=== PATIENT | female | born 1980 | race African-American/Black ===

== ENCOUNTER 2021-11-02 19:01 | Inpatient (IN) | payer BC ==
[~2021-11-02 19:01] MED LIST: Bupivacaine/Epinephrine 0.25% 30 ML VIAL ONE; ePHEDrine Sulfate 50 MG/10 ML VIAL ONE
[2021-11-02] MEDS ORDERED: Lidocaine 1% (PF) 30 ML VIAL SC PRN (21:25)
[2021-11-02] MEDS ORDERED: Acetaminophen 500 MG TAB PO PRN (21:25)
[2021-11-02] MEDS ORDERED: HYDROcodone/Acetaminophen 5/325 mg Tablet PO PRN (21:25)
[2021-11-02] MEDS ORDERED: Carboprost 250 MCG/ML AMP IM PRN (21:25)
[2021-11-02] MEDS ORDERED: Misoprostol 200 MCG TAB PR PRN (21:25)
[2021-11-02] MEDS ORDERED: Ibuprofen 800 MG TAB PO PRN (21:25)
[2021-11-02] MEDS ORDERED: Promethazine HCl 25 MG/ML VIAL IM PRN (21:25)
[2021-11-02] MEDS ORDERED: Diphenoxylate HCl/Atropine Tablet PO PRN (21:25)
[2021-11-02] MEDS ORDERED: Butorphanol Tartrate 1 MG/ML VIAL SLOW IVP PRN (21:25)
[2021-11-02] MEDS ORDERED: Methylergonovine 0.2 MG/ML VIAL IM PRN (21:25)
[2021-11-02] MEDS ORDERED: Ondansetron PF 4 MG/2 ML Vial IVP PRN (21:25)
[2021-11-02] MEDS ORDERED: hydrALAZINE 20 MG/ML VIAL SLOW IVP PRN (21:25)
[2021-11-02 21:29] VITALS: BMI 41.3
[2021-11-02] MEDS ORDERED: NS w/ Oxytocin 30 units 500 ML IV SCH ×2 (21:30)
[2021-11-02] MEDS: Misoprostol 100 MCG TAB VAG SCH (21:43)
[2021-11-02 22:29] LABS: Mean Corpuscular HGB CONC 34.1 g/dL (32.0-36.0); Mean Corpuscular Hemoglobin 24.8 pg (27.0-33.0); Mean Corpuscular Volume 72.7 fl (81.6-98.3); Platelet Count 326 10x3/uL (150-450); RBC Distribution Width 16.2 % (11.5-14.5); Red Blood Cell (RBC) Count 4.03 10x6/uL (3.90-5.03); White Blood Cell (WBC) Count 12.1 10x3/uL (3.5-10.5)
[2021-11-02 22:47] LABS: Syphilis Antibody Nonreactive (Nonreactive)
[2021-11-02 22:59] LABS: HBSAg Index 0.32 S/CO (0-0.99); Hep B Surf Ag Non-Reactive S/CO (NonReactive)
[2021-11-03] MEDS: Misoprostol 100 MCG TAB VAG SCH ×4 (01:08→12:10)
[2021-11-03] MEDS: Lactated Ringer's 1,000 ML IV SCH ×3 (07:54→15:13)
[2021-11-03] MEDS ORDERED: Fentanyl 2 mcg/Bup 0.1% Cadd 100 ML ONE ×2 (14:56→23:02)
[2021-11-03] MEDS ORDERED: Promethazine HCl 25 MG/ML VIAL IM PRN (16:02)
[2021-11-03] MEDS ORDERED: diphenhydrAMINE 50 MG/ML VIAL IVP PRN (16:02)
[2021-11-03] MEDS ORDERED: Moisturizing Cream (Eucerin) 113 GM JAR TOP PRN (16:02)
[2021-11-03] MEDS ORDERED: ePHEDrine Sulfate 50 MG/10 ML VIAL SLOW IVP PRN (16:02)
[2021-11-03] MEDS ORDERED: Lactated Ringer's 500 ML IV PRN (16:02)
[2021-11-03] MEDS ORDERED: Ondansetron PF 4 MG/2 ML Vial IVP PRN (16:02)
[2021-11-03] MEDS ORDERED: Naloxone HCl 0.4 mg/ml Vial IVP PRN ×2 (16:02)
[2021-11-03] MEDS ORDERED: Acetaminophen 325 MG TAB PO PRN (16:02)
[2021-11-03] MEDS ORDERED: Communication Order-Pharmacy FS SCH (16:15)
[2021-11-03] MEDS: Fentanyl 2 mcg/Bupivacaine 0.1% Cassette 100 ML EPIDURAL SCH (23:04)
[2021-11-04] MEDS: Fentanyl 2 mcg/Bupivacaine 0.1% Cassette 100 ML EPIDURAL SCH (06:17)
[2021-11-04] MEDS ORDERED: Fentanyl 2 mcg/Bup 0.1% Cadd 100 ML ONE (06:19)
[2021-11-04] MEDS ORDERED: CEFAZOLIN 2 GM VIAL ONE (14:16)
[2021-11-04] MEDS ORDERED: Methylergonovine 0.2 MG/ML VIAL ONE (14:28)
[2021-11-04] MEDS ORDERED: ePHEDrine Sulfate 50 MG/10 ML VIAL ONE (14:29)
[2021-11-04] MEDS ORDERED: Ondansetron PF 4 MG/2 ML Vial ONE (14:30)
[2021-11-04] MEDS ORDERED: Dexamethasone 4 mg/ml Vial ONE (14:30)
[2021-11-04] MEDS ORDERED: PHENYLEPHRINE-NS 100 MCG/ML 10 ML SYRINGE ONE (14:30)
[2021-11-04] MEDS ORDERED: Oxytocin 10 UNITS/ML VIAL ONE ×2 (14:30→14:39)
[2021-11-04] MEDS ORDERED: Carboprost 250 MCG/ML AMP ONE (14:38)
[2021-11-04] MEDS ORDERED: Tranexamic Acid 1,000 MG/10 ML VIAL ONE (14:38)
[2021-11-04] MEDS ORDERED: Misoprostol 200 MCG TAB ONE (14:38)
[2021-11-04] MEDS ORDERED: Morphine PF 10 MG/10 ML VIAL ONE (14:42)
[2021-11-04] MEDS ORDERED: Ketorolac Tromethamine 30 MG/ML VIAL ONE (14:45)
[2021-11-04 14:49] LABS: pH (Cord, venous) 7.305 (7.250-7.350)
[2021-11-04] MEDS ORDERED: L&D-Morphine 4 MG/ML VIAL SLOW IVP PRN (15:19)
[2021-11-04] MEDS ORDERED: Promethazine HCl 25 MG/ML VIAL IM PRN (15:19)
[2021-11-04] MEDS ORDERED: diphenhydrAMINE 50 MG/ML VIAL IVP PRN (15:19)
[2021-11-04] MEDS ORDERED: Ondansetron HCl/PF 4 MG/2 ML Vial IVP PRN (15:19)
[2021-11-04] MEDS ORDERED: Fentanyl 100 MCG/2 ML VIAL SLOW IVP PRN (15:19)
[2021-11-04] MEDS ORDERED: Naloxone HCl 0.4 mg/ml Vial IV PRN (15:19)
[2021-11-04] MEDS ORDERED: Ondansetron PF 4 MG/2 ML Vial IVP PRN ×2 (15:19→18:02)
[2021-11-04] MEDS ORDERED: Promethazine HCl 25 MG SUPP PR PRN (15:19)
[2021-11-04] MEDS ORDERED: Meperidine HCl/PF 25 MG/ML VIAL SLOW IVP PRN (15:19)
[2021-11-04] MEDS ORDERED: Naloxone HCl 0.4 mg/ml Vial IVP PRN ×2 (15:19)
[2021-11-04] MEDS ORDERED: Moisturizing Cream (Eucerin) 113 GM JAR TOP PRN (15:19)
[2021-11-04] MEDS ORDERED: Communication Order-Pharmacy FS SCH (15:30)
[2021-11-04] MEDS ORDERED: Ketorolac Tromethamine 30 MG/ML VIAL IVP SCH (15:30)
[2021-11-04] MEDS ORDERED: Azithromycin 500 MG VIAL ONE (15:41)
[2021-11-04] MEDS ORDERED: Simethicone Chewable 80 MG TAB PO PRN (18:02)
[2021-11-04] MEDS ORDERED: Acetaminophen 325 MG TAB PO PRN (18:02)
[2021-11-04] MEDS ORDERED: Boostrix 0.5 ML (Tdap) VIAL IM ONE (18:02)
[2021-11-04] MEDS ORDERED: Bisacodyl 10 MG SUPP PR PRN (18:02)
[2021-11-04] MEDS ORDERED: Lanolin Ointment 7 GM TUBE TOP PRN (18:02)
[2021-11-04] MEDS ORDERED: hydrALAZINE 20 MG/ML VIAL SLOW IVP PRN (18:02)
[2021-11-04] MEDS ORDERED: diphenhydrAMINE 25 MG CAP PO PRN (18:02)
[2021-11-04] MEDS: Lactated Ringer's 1,000 ML IV SCH (18:17)
[2021-11-04] MEDS: Misoprostol 100 MCG TAB VAG SCH ×2 (18:18→18:19)
[2021-11-04] MEDS: Ketorolac Tromethamine 30 MG/ML VIAL IVP PRN (21:08)
[2021-11-05] MEDS: Docusate 100 MG CAP PO SCH ×3 (00:15→21:21)
[2021-11-05] MEDS: Ferrous Sulfate 325 MG TAB PO SCH ×3 (00:16→21:21)
[2021-11-05] MEDS: Ketorolac Tromethamine 30 MG/ML VIAL IVP PRN (03:25)
[2021-11-05 05:47] LABS: Hemoglobin 8.7 g/dL (12.0-15.5); Mean Corpuscular HGB CONC 35.4 g/dL (32.0-36.0); Mean Corpuscular Hemoglobin 25.4 pg (27.0-33.0); Mean Corpuscular Volume 71.7 fl (81.6-98.3); Mean Platelet Volume 10.5 fl (7.4-10.4); Platelet Count 243 10x3/uL (150-450); RBC Distribution Width 16.1 % (11.5-14.5); Red Blood Cell (RBC) Count 3.43 10x6/uL (3.90-5.03); White Blood Cell (WBC) Count 19.2 10x3/uL (3.5-10.5)
[2021-11-05] MEDS: Prenatal Vitamin 1 TAB PO SCH (09:09)
[2021-11-05] MEDS: HYDROcodone/Acetaminophen 5/325 mg Tablet PO PRN ×3 (09:12→19:47)
[2021-11-05] MEDS: Ibuprofen 800 MG TAB PO SCH ×2 (14:29→21:21)
[2021-11-05] MEDS ORDERED: Zolpidem Tartrate 5 MG TAB PO PRN (21:00)
[2021-11-06] MEDS: HYDROcodone/Acetaminophen 5/325 mg Tablet PO PRN ×3 (03:00→14:33)
[2021-11-06] MEDS: Ibuprofen 800 MG TAB PO SCH ×2 (05:15→14:33)
[2021-11-06 07:50] VITALS: BP 102/58; TEMP 98.2
[2021-11-06] MEDS: Ferrous Sulfate 325 MG TAB PO SCH (09:47)
[2021-11-06] MEDS: Prenatal Vitamin 1 TAB PO SCH (09:47)
[2021-11-06] MEDS: Docusate 100 MG CAP PO SCH (09:48)
== END 2021-11-06 19:05 | disposition home or self-care (01) | DRG 787 ==
LOC: CSHLD 19:01 → CSHPP 11-04 17:44
PROVIDERS: ADMIT Student in an Organized Health Care Education/Training Program; ATTEND Student in an Organized Health Care Education/Training Program
PROC: 3E0P7VZ Introduction of Hormone into Female Reproductive, Via Natural or Artificial Opening (ICD-10-PCS; 2021-11-03)
PROC: 0U7C7ZZ Dilation of Cervix, Via Natural or Artificial Opening (ICD-10-PCS; 2021-11-03)
PROC: 10D00Z1 Extraction of Products of Conception, Low, Open Approach (ICD-10-PCS; principal; 2021-11-04)
PROC: 10907ZC Drainage of Amniotic Fluid, Therapeutic from Products of Conception, Via Natural or Artificial Opening (ICD-10-PCS; 2021-11-04)
PROC: 10H07YZ Insertion of Other Device into Products of Conception, Via Natural or Artificial Opening (ICD-10-PCS; 2021-11-04)
DX: O24.425 Gestational diabetes mellitus in childbirth, controlled by oral hypoglycemic drugs (principal); D62 Acute posthemorrhagic anemia; Z3A.38 38 weeks gestation of pregnancy; Z37.0 Single live birth; O76 Abnormality in fetal heart rate and rhythm complicating labor and delivery; O62.2 Other uterine inertia; F41.9 Anxiety disorder, unspecified; O99.344 Other mental disorders complicating childbirth; E66.9 Obesity, unspecified; O99.214 Obesity complicating childbirth; Z79.84 Long term (current) use of oral hypoglycemic drugs; Z79.82 Long term (current) use of aspirin; O77.0 Labor and delivery complicated by meconium in amniotic fluid; O69.81X0 Labor and delivery complicated by cord around neck, without compression, not applicable or unspecified; O32.8XX0 Maternal care for other malpresentation of fetus, not applicable or unspecified; O90.81 Anemia of the puerperium
CPT/HCPCS: 36416; 51702; 82805; 85027; 86780; 86850; 86900; 86901; 87340; 87811; J0456; J0595; J1100; J1885; J2210; J2274; J2405; J2590; J7120

== ENCOUNTER 2023-01-15 06:20 | Day surgery (SDC) | payer OTHER ==
[2023-01-13 16:16] VITALS: BMI 35.9
[2023-01-15] MEDS ORDERED: PROPOFOL 40 ML ONE (08:06)
[2023-01-15] MEDS ORDERED: Lidocaine 1% PF 5 ML VIAL ONE (08:07)
[2023-01-15] MEDS ORDERED: PROPOFOL 20 ML ONE (08:36)
== END 2023-01-15 09:20 | disposition home or self-care (01) ==
LOC: CSHSDC 06:20
PROVIDERS: ATTEND Internal Medicine Gastroenterology
PROC: 0DB58ZX Excision of Esophagus, Via Natural or Artificial Opening Endoscopic, Diagnostic (ICD-10-PCS; principal; 2023-01-15)
PROC: 0DB68ZX Excision of Stomach, Via Natural or Artificial Opening Endoscopic, Diagnostic (ICD-10-PCS; principal; 2023-01-15)
DX: K29.50 Unspecified chronic gastritis without bleeding (principal); B96.81 Helicobacter pylori [H. pylori] as the cause of diseases classified elsewhere; K31.7 Polyp of stomach and duodenum; K22.10 Ulcer of esophagus without bleeding; K21.00 Gastro-esophageal reflux disease with esophagitis, without bleeding; K44.9 Diaphragmatic hernia without obstruction or gangrene; E66.9 Obesity, unspecified; Z68.35 Body mass index [BMI] 35.0-35.9, adult; Z88.5 Allergy status to narcotic agent
CPT/HCPCS: 88305; J2704